=== PATIENT | female | born 1955 | race Caucasian/White ===

== ENCOUNTER 2025-02-10 06:29 | Day surgery (SDC) | payer BC, SELFPAY ==
--- OUTSIDE RECORDS SUMMARY | 2024-12-20 10:19 | XMS_ITS | Data Portability ---
Author Organization [place] [facility] Cathryn Palm [facility] [place] Address [address] [place] [address] Care Team Providers Care Sales And Service Change Leader Name Role Phone NICOLE JACKSON Primary Care Provider Assessment No assessment recorded. Plan of Treatment Reminders Order Date Submit Date Provider Last Modified By Organization Details Last Modified Time Details Appointments None record ed. Lab None record ed. Referral None record ed. Procedures None record ed. Surgeries None record ed. Imaging XR, knee, 3 view 023 12/24/19 23 [facility], [address], [place], [address], 3 10:16:20 Medication Orders None record ed. Patient TargetsNo targets recorded. Patient Instructions Encounter Date Encounter Id Patient Instructions Last Modified By Organization Details Last Modified Time 12/23/2022 [id number] AP, lateral, and patellar views of the right knee taken today demonstrate satisfactory position and alignment of components following right total knee replacement. [email or web address] Not available 12/23/2022 09:40:45 Reason for Referral None Reported. Medical Equipment None Reported. Allergies No known drug allergies Medications Name Sig Start Date Stop Date Status Note LastModified by Organization Details LastModified Time azithromycin 250 mg tablet TAKE 2 TABLETS BY MOUTH TODAY, THEN TAKE 1 TABLET DAILY FOR 4 DAYS active Not Available Not Available No t Available sulfamethoxa zole 800 mg-trimethop rim 160 mg tablet TAKE 1 TABLET BY MOUTH TWICE A DAY active Not Available Not Available No t Available amoxicillin 500 mg tablet TAKE 4 TABLETS BY MOUTH 1 HOUR PRIOR TO DENTAL APPT. active Not Available Not Available No t Available meclizine 25 mg tablet TAKE 1 TABLET BY MOUTH EVERY 6 HOURS NEEDED NAUSEA active Not Available Not Available No t Available metoprolol succinate ER 25 mg tablet,exten ded release 24 hr TAKE 1/2 TABLET BY MOUTH DAILY active Not Available Not Available Not Available doxycycline hyclate 100 mg tablet active Not Available Not Available No t Available valsartan 160 mg tablet TAKE 2 TABLET BY MOUTH DAILY (DOSE INCREASE 05/11/21) active Not Available Not Available No t Available rosuvastatin 10 mg tablet TAKE 1 TABLET BY MOUTH DAILY AT BEDTIME FOR CHOLESTEROL active Not Available Not Available Not Available Eliquis 5 mg tablet TAKE 1 TABLET BY MOUTH TWICE A DAY FOR 30 DAYS active Not Available Not Available No t Available Paxlovid 300 mg (150 mg x 2)-100 mg tablets in a dose pack TAKE 3 TABLETS BY MOUTH TWICE DAILY FOR 5 DAYS active Not Available Not Available No t Available Vitals Date Recorded Body height Body mass index (BMI) Body weight Provider Name and Address Organization Details Last Updated DateTime 12/23/2022 157.48 cm 27.4 kg/m2 [address] [place] [facility], 12/23/2022 09:07:58 Social History None recorded. Functional Status None recorded. Mental Status None recorded. Family History Nothing Reported. Medical History Condition Response Coronary Artery Disease N Gout N Hyperthyroidism N MRSA N Blood Transfusion N Emphysema N Depression N COPD N Hypothyroidism N Pacemaker N Vascular Disease N Gastrointestinal Disease N Anxiety Disorder N Autoimmune disease N Arthritis N Cancer N Stroke N High Cholesterol N Neurologic Disorder N Liver Disease N Organ Transplant N Rheumatoid Arthritis N Arrhythmia N Fibromyalgia N Kidney Disease N Allergies/Hayfever N Adverse Reaction to Anesthesia N Thyroid Problems N Anemia N Brain Injury N Heart Attack (MS) N Osteopenia N Diabetes N Bleeding Disorder N Seizures/Epilepsy N AIDS/HIV N Congestive Heart Failure (CHF) N Asthma N Amputation N Reflux/GERD N Sleep Apnea N Hepatitis N Aneurysm N Heart Disease N Pulmonary Embolism N Hypertension N Osteoporosis N Gynecological HistoryNo gynecological history recorded. Obstetrics History GPAL:G 0 P 0 0 0 0 Past Encounters Encounter ID Performer Location Encounter Start Date Encounter Closed Date Diagnosis/Indication Diagnosis SNOMED-CT Code Diagnosis ICD10 Code Diagnosis Note [id number] MD AB Craig [address] [place] [address] [address] [place] [address] 12/23/2022 08:49:46 12/23/2022 09:36:59 History of right total knee replacement [id number] 320207 Z96.651 Aftercare [id number] Z47. 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 She has minimal pain at baseline. She ambulates well. Her only issue is with stairs where she has some discomfort. Overall regarding the knee, patient reports good pain relief in the knee and satisfactory judaism of function in terms of activities of daily living. Physical Exam:Patient is well nourished, well-developed, in no acute distress, with appropriate mood and affect. The patient is oriented to time, place, and person. Respirations are even and unlabored. There is no inguinal adenopathy. Examination of the contralateral knee shows normal range of motion, strength, no tenderness, and intact skin. The affected limb is well-perfused, with well healed skin incision. The patient demonstrates good knee motion, stability, and strength. The knee moves from 0-120 degrees. The alignment of the knee is {{varus valgus neut ral*}}. Muscle strength is normal. Pedal pulses are palpable. Hip examination, including flexion and internal rotation, was negative in that groin pain was not produced. Assessment/Plan: This patient is functioning well {{1* 2 3 4 6 8 12}} {{week(s) month(s) year*}} after {{LEFT RIGHT* BILAT ERAL}} total knee arthroplasty. Continue knee conditioning exercises. I discussed that this will likely help her with her stair discomfort. Zerv-pwz-[id number] medications as needed. Ultimate failure may occur due to mechanical wear, loosening or breakage. Follow-up is recommended to assess for the possibility of failure. She can follow-up at 5 years from surgery unless there are issues before then. Stephen Blanco MD [address] [place] [address], [place], [address], [place] [facility], P 12/23/2022 09:40:58 OBGyn Episode No OBEpisode recorded.
--- OUTSIDE RECORDS SUMMARY | 2024-12-20 10:19 | XMS_ITS | Data Portability ---
Author Organization [facility], OFFICE Address [address] [place] [address] Assessment Encounter Date Assessment Date Assessment LastModified by Organization Details LastModified Time 05/19/2021 05/19/2021 Kanchan has been recovering well following revision RTHR. She's going to continue to progress as tolerated. This visit was conducted as a real-time telehealth interactive video visit during this the national emergency and ongoing COVID-19 pandemic. She was identified and consented to this telehealth visit. She was at her home and I was at my office. I spent a total of 15 minutes during this clinical encounter. Greater than 50% of the time was devoted to counseling and coordinating care. This included reviewing records and pertinent studies, discussing diagnostic evaluation and workup, planning therapeutic interventions, and formulating the future disposition of care. sbm Not available 05/19/2021 10:27:28 Plan of Treatment Reminders Order Date Submit Date Provider Last Modified By Organization Details Last Modified Time Details Appointments None record ed. Lab None record ed. Referral None record ed. Procedures None record ed. Surgeries None record ed. Imaging None record ed. Medication Orders None record ed. Patient TargetsNo targets recorded. Patient InstructionsNo instructions recorded. Reason for Referral None Reported. Problems Name Problem SNOMED Code Status Onset Date Resolution Date Notes Provider Name and Address Organization Details Recorded Time Localized, primary osteoarthriti s of the pelvic region and thigh [id number] Active Not Available [facility] 4 03:31:08 Problem Notes None recorded. Procedures Surgical History Date Name Laterality Status Provider Name and Address Organization Details Recorded Time 03/02/20 21 total replacement of right hip joint completed Mil Dover MD [address], [place], [address], [place] - [facility] 05/19/2021 10:24:29 04/06/20 10 Total hip arthroplasty completed Not Available [facility] 03/04/2014 03:31:22 01/08/20 10 Total hip arthroplasty completed Not Available [facility] 03/04/2014 03:31:22 Imaging Results None recorded. Procedure Notes None recorded. Medical Equipment None Reported. Medications Name Sig Start Date Stop Date Status Note LastModified by Organization Details LastModified Time celecoxib 200 mg capsule TAKE 1 CAPSULE BY MOUTH EVERY DAY active Not Available Not Available No t Available cyclobenzapr ine 10 mg tablet TAKE 1 TABLET BY MOUTH TWICE A DAY NEEDED active Not Available Not Available No t Available prednisone 10 mg tablet PLEASE SEE ATTACHED FOR DETAILED DIRECTIONS active Not Available Not Available N ot Available valsartan 80 mg tablet TAKE 1 AND 1/2 TABLETS BY MOUTH DAILY active Not Available Not Available No t Available simvastatin 20 mg tablet TAKE 1/2 TABLET BY MOUTH DAILY active Not Available Not Available Not Available buspirone 10 mg tablet TAKE ONE TABLET BY MOUTH TWICE DAILY NEEDED active Not Available Not Available No t Available omeprazole 20 mg capsule,jania yed release 1 CAPSULE ORAL DAILY TAKE IN A.M. 30 MINUTES PRIOR TO EATING/OTHE R MEDS. USE WHILE ON CELEBREX. active Not Available Not Available No t Available diclofenac sodium 50 mg tablet,delay ed release TAKE 1 TABLET BY MOUTH EVERY 8 HOURS active Not Available Not Available No t Available albuterol sulfate HFA 90 mcg/actuatio n aerosol inhaler INHALE 2 PUFFS EVERY 6 HOURS NEEDED active Not Available Not Available No t Available oxycodone 5 mg tablet PLEASE SEE ATTACHED FOR DETAILED DIRECTIONS active Not Available Not Available N ot Available valsartan 160 mg tablet TAKE 1 TABLET BY MOUTH EVERY DAY active Not Available Not Available No t Available Eliquis 2.5 mg tablet TAKE 1 TABLET BY MOUTH TWICE A DAY active Not Available Not Available No t Available Vitals None Recorded Social History None recorded. Functional Status None recorded. Mental Status None recorded. Family History Nothing Reported. Medical History No medical history recorded. Gynecological HistoryNo gynecological history recorded. Obstetrics History GPAL:G 0 P 0 0 0 0 Past Encounters Encounter ID Performer Location Encounter Start Date Encounter Closed Date Diagnosis/Indication Diagnosis SNOMED-CT Code Diagnosis ICD10 Code Diagnosis Note [id number] [address] [place] [address] [place] [address] 11/11/2009 11:52:42 11/11/2009 14:14:46 Localized, primary osteoarthritis of the pelvic region and thigh [id number] [facility] [address] [place] [address] 01/07/2010 00:04:07 01/07/2010 00:04:07 Localized, primary osteoarthritis of the pelvic region and thigh [id number] OFFICE [address] [place] [address] [place] [address] 02/19/2010 14:19:04 02/22/2010 08:39:22 Localized, primary osteoarthritis of the pelvic region and thigh [id number] [facility] IN [address] [place] [address] 04/06/2010 00:04:14 04/06/2010 00:04:14 Localized, primary osteoarthritis of the pelvic region and thigh [id number] OFF[address] [address] 05/26/2010 15:03:27 05/26/2010 16:24:12 Localized, primary osteoarthritis of the pelvic region and thigh [id number] OFFICE [address] [address] 08/30/2010 11:17:16 08/30/2010 12:37:38 Localized, primary osteoarthritis of the pelvic region and thigh [id number] OFFICE [address] [address] 08/29/2011 11:22:04 08/29/2011 12:39:14 Localized, primary osteoarthritis of the pelvic region and thigh [id number] Mil Dover MD [address] [address] [place] [address] 05/19/2021 07:46:47 05/19/2021 15:22:15 Health Concerns Section Related Observation LastModified by Organization Detai ls LastModified Time None Recorded Concern Status LastModified by Organization Details LastModified Time None Recorded Advance Directives Directive None Recorded Payers Encounter Date Sequence Insurance Name Policy Number Policy [place] Covered Member ID [place] Member ID Guarantor Name 04/06/2010 1 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 Carlos Diaz [id number] 05/26/2010 1 [place] Carlos Diaz [id number] 08/30/2010 1 [place] Carlos Diaz [id number] 08/29/2011 1 [place] Carlos Diaz [id number] 05/19/2021 1 [place] Carlos Diaz [id number] Notes Date Note Type Note Provider Name and Address Organization Details Recorded Time 05/19/2021 text/html Hip(s) [facility] by[facility].Location:r ight Severity:no pain Aggravating Factors:cannot identify Associated Symptoms:no weakness; no numbness; no tingling; no swelling; no redness; no warmth; no ecchymosis; no catching/locking; no popping/clicking; no buckling; no grinding; no instability; no radiation down leg; no drainage; no fever; no chills; no weight loss; no change in bowel/bladder habits Prior Imaging:x ray; MRI; CT scan Previous PT:helped significantly Mil Dover MD [address] [place] [address],[facility] [address], [place], [address], [place] [facility] 05/19/2021 10:27:31 OBGyn Episode No OBEpisode recorded.
--- OUTSIDE RECORDS SUMMARY | 2024-12-20 10:19 | XMS_ITS | Clinical Summary ---
Author Organization [facility] Address [address] [place] [address] Care Team Providers Care Neuropsychology Division Chief Name Role Phone Tanna Solano MD Primary Care Provider [phone] Allergies Active Allergy Reactions Criticality Noted Date Comments Nickel Low 08/16/2021 Nickel allergy-no official records of allergy testing. Skin turns green. Seasonal 12/24/2021 Medications Medication Sig Dispensed Refills Start Date End Date Status simvastatin (ZOCOR) tablet 20 mg Take 10 mg by mouth daily. 1 04/19/2019 Active valsartan (DIOVAN) tablet 160 mg Take 320 mg by mouth daily. 5 04/05/2019 Active hydroCHLOROthiazide (HYDRODIURIL) tablet 12.5 mg 12.5 mg daily. 0 07/27/2021 Active aspirin EC 81 MG EC tablet Take 1 tablet (81 mg total) by mouth 2 (two) times a day after meals. 84 tablet 0 09/14/2021 Active meloxicam (MOBIC) 15 MG tablet Take 1 tablet (15 mg total) by mouth daily. 14 tablet 0 09/14/2021 Active Additional Information Patient not taking.Reason: Other, Reported on 12/24/2021 methocarbamol (ROBAXIN) 750 MG tablet Take 1 tablet (750 mg total) by mouth every 6 (six) hours as needed (spasm). 40 tablet 0 09/14/2021 Active oxyCODONE (ROXICODONE) 5 MG immediate release tablet Take 1 tablet (5 mg total) by mouth every 4 (four) hours as needed for pain. 30 tablet 0 09/14/2021 Active Additional Information Patient not taking.Reason: Other, Reported on 12/24/2021 senna-docusate (PERICOLACE) 8.6-50 MG Take 1 tablet by mouth 2 (two) times a day. 60 tablet 0 09/14/2021 Active ondansetron (Zofran ODT) 8 MG disintegrating tablet Take 1 tablet (8 mg total) by mouth every 8 (eight) hours as needed for nausea. 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 Overview: Degenerative joint disease of shoulder region Immunizations Name Administration Dates Next Due Covid-19 (Moderna 12+) 100mcg/0.5mL dosage 08/09,12/09/2020,11/11/2020 Family History Medical History Relation Name Comments Hypertension Brother COPD Father Emphysema Father Hypertension Father Stroke Father Atrial fibrillation Mother COPD Mother Dementia Mother Heart failure Mother No Sig Med Hx Sister Relation Name Status Comments Brother Alive Father (Age 80) Mother (Age 95) Sister Alive Social History Tobacco Use Types Packs/Day Years Used Date Smoking Tobacco: Former Cigarettes 0.3 10 Q uit: 06/16/1981 Smokeless Tobacco: Never Alcohol Use Standard Drinks/Week Comments Yes 3 (1 standard drink = 0.6 oz pur e alcohol) Sex and Gender Information Value Date Recorded Sex Assigned at Female 06/16/2021 11:09 AM EDT Gender Identity Female 06/16/2021 11:09 AM EDT Sexual Orientation Not on file Job Start Date Occupation Industry Not on file Not on file Not on file Last Filed Vital Signs Vital Sign Reading Time Taken Comments Blood Pressure 108/68 09/14/2021 1:30 PM EST Pulse 70 09/14/2021 10:26 AM EST Temperature 36.7 ??C (98 ??F) 09/14/2021 10:26 AM EST Respiratory Rate 19 09/14/2021 10:26 AM EST Oxygen Saturation 97% 09/14/2021 10:26 AM EST Inhaled Oxygen Concentration - - Weight 68 kg (150 lb) 09/13/2021 6:38 AM EST Height 158.8 cm (5' 2.5 ) 09/13/2021 6:38 AM EST Body Mass Index 27 09/13/2021 6:38 AM EST Plan of Treatment Health Maintenance Due Date Last Done Comments Hepatitis C Screening 1953 Depression Screening 1965 Preventative Health Evaluation 1971 Colon Cancer Screening (Colonoscopy) 1998 Breast Cancer Screening (Mammogram) 2003 Shingrix-Zoster Vaccine (1 of 2) 2003 DTap / Tdap / Td (1 - Tdap) 07/10/2007 07/09/2007 Fall Risk Assessment 2018 Osteoporosis Screening (DEXA Scan) 2018 Pneumococcal Vaccine (2 of 2 - PPSV23 or PCV20) 04/08/2021 04/08/2020 COVID-19 Vaccine ( season) 2024 08/09/2021, 12/09/2020, 11/11/2020 Influenza Vaccine (#1) 2024 , 08/13/2018, 08/15/2017, Additional history exists RSV Adult > 60+ Yrs or (1 - 1-dose 75+ series) 2028 Hepatitis B Vaccines Aged Out No long er eligible based on patient's age to complete this topic RSV Ped < 20 months Aged Out No longe r eligible based on patient's age to complete this topic Medical Devices Implanted Type Area Building Construction Inspector Device Identifier Shelf Expiration Date Model / Serial / Lot Journey Nonporous Tibial Baseplate Implanted:Qty : 1 on 09/13/2021 by Stephen Blanco MD at [facility] Total Joint Right: Knee 07/13/2031 / / [id number] Journey Ii Size 3-4 Right 11mm Deep Dished Articular Insert Implanted:Qty : 1 on 09/13/2021 by Stephen Blanco MD at [facility] and [facility] Right: Knee [employer] 07/15/2029 [id number] / / [id number] Cement Bone Surg Simplex Radiopq [facility] [id number] [id number] - [id number] Implanted:Qty : 1 on 09/13/2021 by Stephen Blanco MD at [facility] and [facility] Right: Knee [employer] [id number] 08/08/2022 [id number] / / [id number] Cement Bone Surg Simplex Radiopq [employer] [id number] 4092 - [id number] Implanted:Qty : 1 on 09/13/2021 by Stephen Blanco MD at [facility] and [facility] Right: Knee [employer] [id number] 08/08/2022 6191- / / [id number] Knee Cmpnt Fem Oxnm Bcs Rt Sz4 [facility] [id number] 19 - [id number] Implanted:Qty : 1 on 09/13/2021 by Stephen Blanco MD at [facility] and [facility] Right: Knee [employer] [id number] 02/15/2031 [id number] / / [id number] Knee Patella Ovl 29x8.5mm [facility] [id number] 60 - [id number] Implanted:Qty : 1 on 09/13/2021 by Stephen Blanco MD at [facility] and [facility] Right: Knee [employer] [id number] 07/13/2031 [id number] / / [id number] Advance Directives For more information, please contact: [phone] Latest Code Status on File Code Status Date Activated Date Inactivated Comments Full Code 09/13/2021 7:26 AM 09/14/2021 8:15 PM This code status was ascertained in the following way: discussion with patient . Code Status History Code Status Date Activated Date Inactivated Comments Full Code 09/13/2021 6:30 AM 09/13/2021 7:26 AM This code status was ascertained in the following way: discussion with patient . Care Teams Neuropsychology Division Chief Relationship Specialty Start Date End Date Tanna Solano MD [address] [place] [phone] PCP - General Family Medicine 05/11/21
--- OUTSIDE RECORDS SUMMARY | 2024-12-20 10:19 | XMS_ITS | Data Portability ---
Author Organization [place] - [facility], [facility] [place] Office Address [address] [place] [address] Care Team Providers Care Real Estate Broker Name Role Phone SREEDHAR BURTON Primary Care Provider Assessment Encounter Date Assessment Date Assessment LastModified by Organization Details LastModified Time 06/15/2024 06/15/2024 Diagnostic Imagi ng: Grashey, axillary, and humerus views of bilateral shoulders were reviewed, demonstrate severe bilateral glenohumeral DJD, complete loss of glenohumeral joint space, humeral osteophyte. Assessment/ Plan: 68-year-old female presents severe bilateral glenohumeral DJD, left worse than right. We had a long discussion regarding pertinent anatomy, imaging results, natural progression of the condition, and both non-surgical and surgical options. At this point, she has severe arthritis in both shoulders, decreased range of motion function, it is very affecting her day-to-day activities, her ADLs, and her overall quality of life. She has tried and failed nonoperative management including pharmacotherapy, injection therapy, and physical therapy. I think surgery is reasonable at this point. She would be a candidate for reverse shoulder replacement. She is states that because she is right-hand dominant, she would like to proceed with her left shoulder first, which is reasonable. We discussed the risk, benefits, perioperative outcomes and expectations for left reverse shoulder replacement. Will set up with a tentative surgical date for a left RSA at [facility], as well as a presurgical consultation Dr. Danielle. All questions were answered, and she is viewed the video, was given a copy of booklet, and she is comfortable this plan. A total of 45 minutes was spent on the day of the visit, which included the patient viewing an educational video discussing risks and benefits of shoulder replacement, time spent preparing to see the patient, obtaining a pertinent H&P, review and discussion of imaging with the patient, discussion of patient anatomy, discussion of both non-surgical and surgical treatment options, answering patient questions, and documentation of the visit in EHR. This note was dictated with speech recognition software. Please excuse any errors in spelling/transcripti on, which may have changed the context of the sentence. [email or web address] Not available 06/15/2024 11:02:03 09/25/2024 09/25/2024 X-Ray AP/Grashey left shoulder-09/25/24: Very severe glenohumeral osteoarthritis with complete loss of glenohumeral joint spacing. Inferior osteophyte formation. ASSESSMENT: - Advanced arthritis of the shoulders, worse on the left. - History of multiple joint replacements. PLAN: Discussed the patient's advanced arthritis in both shoulders, with the left being worse. Explained that shoulder replacements are generally reserved for patients who experience significant pain affecting their quality of life. Kanchan's primary concern is improving her range of motion and quality of life, particularly for activities like swimming and bicycling. We discussed the potential benefits and risks of shoulder replacement surgery, including the possibility of improved motion and pain relief, but also the inherent risks of surgery such as infection, implant failure, and stress fractures. Given Kanchan's history of managing pain and her current level of discomfort, we will proceed with scheduling her for a reverse shoulder replacement surgery in December. She will be provided with a booklet containing detailed information about the surgery and postoperative care. Follow-up will be arranged to monitor her progress and address any concerns. Had a lengthy conversation today with the patient regarding their shoulder. Patient has watched the pre-visit video. Explained to patient in detail the anatomy of a shoulder. Reviewed X-Rays. Reviewed all possible treatment options which include: nothing until pain is unbearable, injections or surgery. Discussed the possible surgical options would be a total shoulder replacement or a reverse shoulder replacement. I am more inclined to perform a reverse for the patient given the anatomic replacement's risk for rotator cuff tearing in the future, as well as the reverse's improved longevity comparatively. Discussed optimal treatment outcomes, with realistic healing, pain and range of motion levels post-surgically. Reviewed the seven general surgical risks; infection, medical risk factors, dislocation/popping out of socket, implant failure, nerve injury, stress fracture, and the possibility of still having pain. I am especially concerned by the patient's risk for acromial stress fracture. Should this occur, immobilization in a sling will be necessary for 4-6 weeks, which can be quite discouraging. Surgical repair of the fracture may be necessary, but this is a very rare occurrence. Ultimately, there is a chance that, functionally, the patient will be unchanged or worse off compared to their current condition should this fracture occur. Barring any complications, however, surgery should improve the patient's general pain and function reliably. Despite the risks and benefits, they would like to proceed with surgery, as the pain and dysfunction affect their quality of life on a daily basis. They are scheduled for a LEFT Reverse for 12/10/24. Reviewed operative and post op healing process. Discussed that patient is allowed to do small movements in front of body and driving usually is allowed within 2-6 weeks, once they are off pain medication and has practiced with family/friends. Patient received a pre-op binder. Given the patient's pain, dysfunction, and advanced degenerative changes, advised against enrollment in a formal physical therapy program, as this will likely exacerbate their shoulder pain. I spent a total of 45 minutes on the day of the visit which included In depth discussion and shared decision making with patient regarding options for non-surgical and surgical treatment. This discussion included but was not limited to preoperative optimization, surgical procedure and approach, appropriate implant selection and technologies, benefits and risks of surgery as well as postoperative care and recovery. This plan is subject to change based on clinical presentation and intraoperative decision making. This appointment note was dictated in real-time using AI-assisted software. Given the limitations of this software, please disregard any redundancies, grammatical errors, or oversimplification of medical terminology throughout this transcript. [email or web address] Not available 10/23/2024 09:18:22 Plan of Treatment Reminders Order Date Submit Date Provider Last Modified By Organization Details Last Modified Time Details Appointments 240 Surgery 2024 12:00A M KARUNA DANIELLE MD Not available Not available Not available Lab None recorded. Referral None recorded. Procedures None recorded. Surgeries orthopaed ic surgery (SURG) 2023 025 [email or web address] [facility] (Surgery Scheduling), [address], [place], [address], 11/21/2024 13:11:34 Imaging None recorded. Medication Orders None recorded. Patient TargetsNo targets recorded. Patient InstructionsNo instructions recorded. Reason for Referral None Reported. Problems Name Problem SNOMED Code Status Onset Date Resolution Date Notes Provider Name and Address Organization Details Recorded Time Localized, primary osteoarthritis of the shoulder region 039291721 Active 2023 KAITLYNN TONY [address] [place] [address], [phone], [facility] 4 10:16:47 Problem Notes None recorded. Procedures Surgical History Date Name Laterality Status Provider Name and Address Organization Details Recorded Time 1 Orthopaedic Surgery completed Benjie Christinemirta [facility] 06/15/2024 09:58:13 1 [facility] 06/15/2024 09:56:59 0 Orthopaedic Surgery completed [facility] 06/15/2024 09:57:38 9 Orthopaedic Surgery completed [facility] 06/15/2024 09:57:19 1 Orthopaedic Surgery completed [facility] 06/15/2024 09:58:38 8 [facility] 06/15/2024 09:59:40 Orthopaedic Surgery completed [facility] 06/15/2024 09:59:05 [facility] 06/15/2024 09:59:16 Imaging Results None recorded. Procedure Notes None recorded. Medical Equipment None Reported. Allergies No known drug allergies Medications Name Sig Start Date Stop Date Status Note LastModified by Organization Details LastModified Time furosemide 20 mg tablet Take 1 tablet every day by oral route. active Not Available Not Available No t Available Eliquis 5 mg tablet Take 1 tablet twice a day by oral route. active Not Available Not Available No t Available Vitals Date Recorded Body height Body mass index (BMI) Body weight Provider Name and Address Organization Details Last Updated DateTime 06/15/2024 157.48 cm 27.4 kg/m2 90514.86 g Benjie Sharma [facility] 06/15/2024 09:55:02 Social History Question Answer Notes LastModified by Organizat ion Details LastModified Time Tobacco Smoking Status Never Smoker Benjie Sharma you [facility] 06/15/2024 09:55:34 What Is Your Level Of Alcohol Consumption? Occasional Information not available 06/15/2024 Do You Or Have You Ever Used E-cigarettes Or Vape? 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 Never Used Smokeless Tobacco Information not available 06/15/2024 Sex: Unknown Functional Status None recorded. Mental Status None recorded. 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 Obstetrics History GPAL:G 0 P 0 0 0 0 Past Encounters Encounter ID Performer Location Encounter Start Date Encounter Closed Date Diagnosis/Indication Diagnosis SNOMED-CT Code Diagnosis ICD10 Code Diagnosis Note [id number] KAITLYNN TONY [address] [address] 06/15/2024 09:21:49 06/15/2024 11:58:13 Localized, primary osteoarthritis of the shoulder region 968054643 M19.447 [id number] KARUNA DANIELLE MD [address] [address] 09/25/2024 13:54:49 09/25/2024 15:03:13 Localized, primary osteoarthritis of the shoulder region [id number] M19.019 Health Concerns Section Related Observation LastModified by Organization Detai ls LastModified Time None Recorded Concern Status LastModified by Organization Details LastModified Time None Recorded Advance Directives Directive None Recorded Payers Encounter Date Sequence Insurance Name Policy Number Policy [place] Covered Member ID [place] Member ID Guarantor Name 06/15/2024 1 [facility]: [employer] 104 Kanchan Conway [id number] Kanchan Conway 09/25/2024 1 [facility]: [employer] 104 Kanchan Conway [id number] Kanchan Conway Notes Date Note Type Note Provider Name and Address Organization Details Recorded Time 06/15/2024 text/html 68-year-old lluvia mcnamara presents with chief complaint bilateral shoulder pain, left worse than the right. She rates her pain currently as 1/10, SSV is 25% of normal. 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 Prior treatments for shoulder include oral Tylenol, physical therapy, and injection many years ago. She is unable to take anti-inflammatories due to the Eliquis she takes for A-fib. She does note that she had an ablation done in August. She notes that she limits a lot of her activity so she is not a lot of pain, but certainly if she was to do more with her arm, it would cause her pain. She states that her left shoulder has worse function, and because she uses her RUE for many things, she'd like to do her left shoulder first. 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 KAITLYNN TONY [address] [place] [address], [phone], [facility] 06/15/2024 12:09:14 09/25/2024 text/html Kanchan Conway is a 68-year-old female presenting to the clinic due to left shoulder pain. She reports that both shoulders have been problematic for approximately 10 years, with the left shoulder being worse. She experiences aching pain in both shoulders, which sometimes requires her to take Tylenol. She has had to modify or stop certain activities due to the pain. Kanchan mentions that she used to enjoy swimming but can no longer perform strokes like the crawl and now only does minimal movements in the water, which is unsatisfying. She also experiences pain and difficulty while bicycling, as she needs to keep her hands on the handlebars, causing discomfort throughout the activity. Kanchan describes the pain as not severe but persistent, with occasional sharp pain when reaching for objects. She has a history of multiple joint replacements, including three hip replacements, a knee replacement, and metal in her ankle. She has previously received cortisone injections in her shoulders, which provided temporary relief but did not improve her range of motion. PAIN - {{ 1#}}: ASES - {{ 61#}}: SANE - {{ 25#}}. KARUNA DANIELLE MD [address] [place] [address], [phone] 10/23/2024 09:18:32 OBGyn Episode No OBEpisode recorded.
--- OUTSIDE RECORDS SUMMARY | 2024-12-20 10:19 | XMS_ITS | Clinical Summary ---
Author Organization [facility] Address [address] [place] [address] Phone Care Team Providers Care Commercial Internship Name Role Phone Suzanne Xiong MD Primary Care Provider Allergies No known active allergies Medications apixaban (ELIQUIS) 5 mg tablet Take 5 mg by mouth 2 times daily. Active CRANBERRY ORAL Take 1 tablet by mouth 2 (two) times a day. Active multivit-min/fol ic acid/lutein (CENTRUM SILVER ORAL) Take 1 tablet by mouth. 2-3 times a week Active rosuvastatin (CRESTOR) 10 mg tablet Take 1 tablet (10 mg total) by mouth 1 (one) time each day. 09/27/2024 Active furosemide (LASIX) 20 mg tabletIndication s:Atrial fibrillation, unspecified type (CMS/HCC) Take 2 tablets (40 mg total) by mouth 1 (one) time each day. 09/27/2024 Active Active Problems Problem Noted Date Diagnosed Date Hyperlipidemia 09/27/2024 Assessment & Plan (09/27/2024 5:52 PM EST): Patient is concerned that the statin that she is on may be causing dementia. This does not necessarily been proven in the literature. And she is on a hydrophilic statin which is less likely to cross the blood-brain barrier and therefore it is less likely to cause any symptoms I have convinced her to go back to a full dose of this to control her lipids Heart failure with preserved ejection fraction 0 01/08/2024 SOB (shortness of breath) 11/13/2023 Assessment & Plan (09/27/2024 5:52 PM EST): Possible heart failure uncertain. BNP is elevated. Though better than it has been in the past. Other than peripheral edema no other significant identified symptoms are present. I have asked the patient to go back to her 40 mg of Lasix a day she is given a lab slip to check a basic metabolic profile. We see if we can improve the symptoms. Patient also a stress echocardiogram to assess LV systolic function and to sure there is no ischemia as the etiology for her shortness of breath The above note was prepared with the help of voice recognition software. Please excuse any grammatical or spelling errors that may have occurred Palpitations 02/27/2023 Mitral regurgitation 07/12/2022 Overview (09/12/2024): Last Assessment & Plan: Patient's last echocardiogram showed mild mitral regurgitation. She denies any clinical symptoms of heart failure and she appears euvolemic on physical examination. She continues on furosemide 20 mg twice daily. We will continue to monitor this. Atrial fibrillation 07/11/2022 Overview (09/12/2024): Last Assessment & Plan: Patient has atrial fibrillation which has been difficult to rate control. She is currently on flecainide.Her [id number] score is 2 representing a 3.2% risk for thromboembolism. She continues on Eliquis 5 mg twice daily. Patient is planned to have an ablation procedure in the coming weeks. I followed up with our procedure maintenance scheduler as well as Dr. Morrison to ensure that this gets taken care of right away. Patient is quite concerned about having this done as her recently from a fatal arrhythmia. We discussed that atrial fibrillation is not a fatal arrhythmia and that her situation is different from her 's. Nonetheless she was quite tearful and upset that this has not been booked yet. We will follow-up and make sure that this gets done right away. Assessment & Plan (09/27/2024 5:52 PM EST): Patient is status post ablation no symptomatic breakthrough. She wants to come off anticoagulation she will need a 30-day monitor which have ordered and then a conversation with shared decision making as to whether she stops this. Orders: Cardiac event monitor; Future Basic metabolic panel; Future Stress echocardiogram (TTE) exercise with PRN contrast, bubble, strain, and 3D order panel; Future furosemide (LASIX) 20 mg tablet; Take 2 tablets (40 mg total) by mouth 1 (one) time each day. Syncope 07/11/2022 Encounters Date Type Department Care Team Description 11/28/2024 8:00 AM EST Ancillary Procedure [facility] [address] [place] [address] Atrial fibrillation, unspecified type (CMS/HCC) 10/16/2024 12:30 PM EST Ancillary Procedure [facility] [address] [place] [address] Atrial fibrillation, unspecified type (CMS/HCC); Shortness of breath 09/30/2024 Telephone [facility] [address] [facility] [address] [place] [address] Rajendra Acharya MD Loop - 19162; LOOP - 25617 (Ok to Book); Loop Enrollment (Enrolling patient for 30 day Loop) 09/27/2024 1:00 PM EST Office Visit [facility] [address] [facility] [address] [place] [address] Rajendra Acharya MD Atrial fibrillation, unspecified type (CMS/HCC) (Primary Dx); Shortness of breath; SOB (shortness of breath); Moderate mixed hyperlipidemia not requiring statin therapy from Last 3 Months Surgical History Surgery Date Site/Laterality Comments HIP ARTHROPLASTY Bilateral PROCEDURE: HISTORICAL HIP REPLACEMENT HERNIA REPAIR Right PROCEDURE: HISTORICAL HERNIA REPAIR/ING OTHER SURGICAL HISTORY PROCEDURE: HISTORY OTHER; COMMENT: REVISION OF HIP REPLACEMENT RIGHT SIDE Medical History Medical History Date Comments Lee's cyst DX:Lee's cyst Cervical radiculopathy DX:Cervic al radiculopathy Deficiency of vitamin B12 DX:Def iciency of vitamin B12 Esophageal reflux DX:Esophageal reflux Hearing aid worn DX:Hearing aid worn; COMMENT: right ear Hernia, hiatal DX:Hernia, hiata l History of COVID-19 DX:History o f COVID-19 Hx of right inguinal hernia repair DX:Hx of right inguinal hernia repair Lactose intolerance DX:Lactose i ntolerance Osteoarthritis DX:Osteoarthriti s Otosclerosis DX:Otosclerosis Yjavlumdl-Pwgxkr-Fsigyw syndrome DX:Gjnioymxi-Gixhkn-Mzmgzv syndrome Carpal tunnel syndrome DX:Carpal tunnel syndrome Otitis externa of right ear DX:O titis externa of right ear Left shoulder pain DX:Left shoul hanh pain Vitamin B12 deficiency DX:Vitami n B12 deficiency 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 DX:Degenerative joint diseas e of shoulder region HTN (hypertension) DX:HTN (hyper tension) Left wrist pain DX:Left wrist pa in Syncope DX:Syncope Family History Medical History Relation Name Comments Asthma Father COPD Father Hypertension Father Alzheimer's disease Mother Heart failure Mother Relation Name Status Comments Father Mother Social History Tobacco Use Types Packs/Day Years Used Date Smoking Tobacco: Former Cigarettes Tobacco Cessation:Counseling Given: Not Answered Comments:Smoked in teens, 20's Alcohol Use Standard Drinks/Week Comments Yes 0 (1 standard drink = 0.6 oz pure alcohol) couple oz of wine once/twice weekly Comments Unknown Sex and Gender Information Value Date Recorded Sex Assigned at Not on file Legal Sex Female 9:45 AM EST Gender Identity Not on file Sexual Orientation Not on file Obstetrics History Last Filed Vital Signs Vital Sign Reading Time Taken Comments Blood Pressure 136/66 05/09/2024 10:53 AM EDT Si tting L Arm Pulse 72 09/27/2024 1:10 PM EST Temperature - - Respiratory Rate - - Oxygen Saturation 94% 09/27/2024 1:10 PM EST Inhaled Oxygen Concentration - - Weight 69.9 kg (154 lb) 10/16/2024 1:24 PM EST Height 157.5 cm (5' 2 ) 10/16/2024 1:24 PM EST Body Mass Index 28.17 10/16/2024 1:24 PM EST Plan of Treatment Upcoming Encounters Date Type Department Care Team (Late st Contact Info) Description 01/07/2025 2:40 PM EDT Office Visit [facility] [address] [place] [address] Zahira Elizabeth NP [address] [place] [address] [address] [place] [address] Health Maintenance Due Date Last Done Comments Zoster Vaccines (1 of 2) 2003 Hepatitis B Vaccines (2 of 3 - 19+ 3-dose series) 08/23/2010 07/26/2010 IPV Vaccines (2 of 3 - Adult catch-up series) 01/03/2012 12/06/2011 RSV Immunization Patients 60+ Years Old (1 - Risk 60-74 years 1-dose series) 2013 Breast Cancer Screening 12/13/2019 12/12/2017 Pneumococcal Vaccine: 50+ Years (2 of 2 - PPSV23) 04/08/2021 04/08/2020 Cholesterol Screening (Lipid Panel) 09/17/2022 Colorectal Cancer Screening: Colonoscopy 09/17/2022 Depression Screening 09/17/2022 Falls Risk Assessment 09/17/2022 Hepatitis C Screening 09/17/2022 Osteoporosis Screening (Bone Density Screening) 09/17/2022 Social Influencers of Health Screening 09/17/2022 COVID-19 Vaccine ( season) 2024 05/10/2024, 07/01/2023, 07/25/2022, Additional history exists Hypertension/CHF/CAD Annual BMP Blood Test 09/11/2024 09/11/2023 DTaP,Tdap,and Td Vaccines (3 - Td or Tdap) 09/11/2027 09/11/2017, 07/09/2007 Hepatitis A Vaccines Aged Out 12/06/2011 No long er eligible based on patient's age to complete this topic Influenza Vaccine Completed 08/26/2024, , 06/22/2020, Additional history exists HIB Vaccines Aged Out No longer eligi ble based on patient's age to complete this topic HPV Vaccines Aged Out No longer eligi ble based on patient's age to complete this topic MMR Vaccines Aged Out No longer eligi ble based on patient's age to complete this topic Meningococcal ACWY Vaccine Aged Out N o longer eligible based on patient's age to complete this topic Meningococcal B Vacine Aged Out No lo nger eligible based on patient's age to complete this topic RSV Immunization Patients Under 20 months Aged Out No longer eligible based on patient's age to complete this topic Varicella Vaccines Aged Out No longer eligible based on patient's age to complete this topic Medical Devices Implanted Type Area Rim Roller Setter Device Identifier Shelf Expiration Date Model / Serial / Lot Journey Nonporous Tibial Baseplate Implanted:Qty : 1 on 09/13/2021 by Stephen Blanco MD Joints Right: Knee 07/13/2031 / / [id number] Journey Ii Size 3-4 Right 11mm Deep Dished Articular Insert Implanted:Qty : 1 on 09/13/2021 by Stephen Blanco MD Right: Knee [employer] 07/15/2029 [id number] / / [id number] [employer] Simplex Radiopq Stry-Howm [id number] Implanted:Qty : 1 on 09/13/2021 by Stephen Blanco MD Right: Knee [employer] [id number] 08/08/2022 6191- / / [id number] C[employer] Simplex Radiopq Stry-Howm [id number] [id number] Implanted:Qty : 1 on 09/13/2021 by Stephen Blanco MD Right: Knee [employer] [id number] 08/08/2022 6191- / / [id number] Knee Cmpnt Fem Oxnm Bcs Rt Sz4 [facility] [id number] Implanted:Qty : 1 on 09/13/2021 by Stephen Blanco MD Right: Knee [employer] [id number] 02/15/2031 [id number] / / [id number] Knee Patella Ovl 29x8.5mm Smn-Orth [id number] Implanted:Qty : 1 on 09/13/2021 by Stephen Blanco MD Right: Knee [employer] [id number] 07/13/2031 [id number] / / [id number] Procedures Procedure Name Priority Date/Time Associated Diagnosis Comments STRESS ECHOCARDIOGRAM EXERCISE Routine 10/16/2024 1:24 PM EST Atrial fibrillation, unspecified type (CMS/HCC) Shortness of breath ANNUAL [facility] BLOOD TEST Routine 09/11/2023 from Last 3 Months or Most Recently Relevant to Health Maintenance Results * STRESS ECHOCARDIOGRAM EXERCISE (10/16/2024 1:24 PM EST) BSA 1.75 m2 CV PACS STRESS Exercise/inject ion duration (min) 6 CV PACS STRESS Exercise/inject ion duration (sec) 5 CV PACS STRESS Peak SBP 178 mmHg CV PACS STRESS Peak DBP 72 mmHg CV PACS STRESS Peak HR 136 bpm CV PACS STRESS Baseline HR 70 bpm CV PACS STRESS Baseline SBP 130 mmHg CV PACS STRESS Baseline DBP 72 mmHg CV PACS STRESS Estimated workload 7.2 METS CV PACS STRESS Percent HR 91 % CV PACS STRESS Rate Pressure Product 24,208.0 mmHg*bpm CV PACS STRESS Target HR 128 bpm CV PACS STRESS Angina Index 0 CV PACS STRESS Max HR Percent 91 % CV PA CS STRESS ST Depression (mm) 0 mm CV PACS STRESS Anatomical Region Laterality Modality Ultrasound 10/16/2024 12:5 3 PM EST 10/16/2024 1:30 PM EST Narrative 10/23/2024 10:31 AM EST ?Stress ECG was normal. ?Exercise stress test was performed. Exercise capacity was above average. Normal blood pressure response. ?Post??Stress??Impression: The study is normal. ?Low risk of ischemia. ?Normal wall motion, unchanged from baseline. ?Stress: Blood pressure demonstrated a normal response. Heart rate demonstrated a normal response. The patient reported mild shortness of breath during the stress test. ?Exercise stress test showed no evidence of exercise-induced ischemia by echocardiographic or EKG criteria normal heart rate and blood pressure response patient did have exertional dyspnea. ??But no EKG or echocardiographic evidence for ischemia at moderate workload Left Ventricle Left ventricle cavity size is normal. There is mild hypertrophy. Systolic function is normal with an ejection fraction in the 55-70% range. There are no regional LV wall motion abnormalities. Study Details Overall the study quality was adequate. Stress Findings A Rudy protocol stress test was performed. Overall, the patient's exercise capacity was above average. Total stress time was 6 min and 5 sec. The patient experienced no angina during the test. The test was stopped because the patient experienced fatigue and shortness of breath. The patient's hemodynamic response was adequate for diagnosis. Blood pressure demonstrated a normal response. Heart rate demonstrated a normal response. The patient reported mild shortness of breath during the stress test. ECG 68 yo female h/o Afib and exertional shortness of breath. The ECG shows normal sinus rhythm. The ECG axis is normal. There were no arrhythmias during stress. There is no ST segment changes during stress. Arrhythmias during recovery: rare premature ventricular contractions (PVCs). There were no ST changes. The result of the stress ECG was negative for ischemia. Echo Post Stress Left ventricular cavity size decreased from baseline. Left ventricular systolic function improved from baseline. Systolic function is normal with an ejection fraction of 55-70%. Normal wall motion, unchanged from baseline. Nuclear Measurements The study is normal. This study shows a low risk of major adverse cardiovascular events. Rajendra Acharya MD CV ECHO PROCEDURES Final Resul t * Annual [facility] Blood Test (09/11/2023) [facility] Annual [facility] Blood Test abstracted Historical Provider HEALTH MAINTENANCE Final Result from Last 3 Months or Most Recently Relevant to Health Maintenance Insurance [facility] Care Teams Commercial Internship Relationship Specialty Start Date End Date Suzanne Xiong MD [address] [address] PCP - General 06/06/23
--- OUTSIDE RECORDS SUMMARY | 2024-12-20 10:19 | XMS_ITS | Encounter Summary ---
Author Organization [facility] Address [address] [place] [address] Care Team Providers Care Cupola Tapper Name Role Phone Suzanne Xiong MD Primary Care Provider Reason for Visit * Reason Onset Date Comments Loop - 02522 09/30/2024 LOOP - 94312 (Ok to Book) 09/30/2024 Loop Enrollment 09/30/2024 Enrolling vic t for 30 day Loop Encounter Details Date Type Department Care Team (Late st Contact Info) Description 09/30/2024 Telephone [facility] [address] [place] [address] Rajendra Acharya MD [address] [place] [address] [address] [place], [place] [id number] Loop - 67889; LOOP - 69772 (Ok to Book); Loop Enrollment (Enrolling patient for 30 day Loop) Social History Tobacco Use Types Packs/Day Years Used Date Smoking Tobacco: Former Cigarettes Comments:Smoked in teens, 20 's Alcohol Use Standard Drinks/Week Comments Yes 0 (1 standard drink = 0.6 oz pure alcohol) couple oz of wine once/twice weekly Comments Unknown Sex and Gender Information Value Date Recorded Sex Assigned at Not on file Legal Sex Female 9:45 AM EST Gender Identity Not on file Sexual Orientation Not on file documented as of this encounter Progress Notes * Heidi Cummings MA - 11/26/2024 9:31 AM EST 11/26/24- Enrolling patient for 30 day Loop ordered by Dx: *assess for Afib- on AC* I called and left a detailed message letting patient know [employer] will be reaching out to set up home delivery. * Zoë Orozco MA - 10/29/2024 7:42 AM EST FCM to cancel enrollment. Will re-enroll patient for the monitor on 11/25/24. Thank you. * Rajendra Acharya MD - 10/24/2024 4:07 PM EST Go ahead and wait until she gets back from her travels obviously she is not too worried about the A-fib. But I am sure that if we do not do that she is going to come back and wanted accomplished at some point so lets just postpone until she gets back. In that way it does not get lost in some foreign country. But if it does get lost in a foreign country I be more than happy to retrieve it ([facility] woul d pay the cost for me to go the) * Zoë Orozco MA - 10/24/2024 1:12 PM EST Patient called [employer] to arrange home delivery of monitor and stated to them that she was traveling out of the country in early November and would prefer to do the test after she returns.She has asked for the monitor to be sent out on 11/25/24 and will start the test that week. Please advise? Thank you. * Heidi Cummings MA - 10/24/2024 10:08 AM EST 10/24/24- Enrolling patient for 30 day Loop ordered by Dx: assess for Afib- on AC I called and spoke to patient, she is aware [employer] will reach out to her to schedule home delivery. * Heidi Cummings MA - 10/24/2024 9:31 AM EST Patient is to be enrolled for 30 day Loop ordered by Dx: Assess for Afib- on AC * Lary Long - 10/24/2024 9:01 AM EST Prior Auth Status: APPROVED Auth Number: [id number] Prior Auth Validity Dates: 09.30.24 - 12.29.24 CPT: 43681 - LOOP DX: I48.91 Duration: 30 Days [place]: Marck PAGAN to BOOK * Lary Long - 10/11/2024 10:47 AM EST Nothing pending with [employer]. Re-faxed to insurance * Lary Long - 10/03/2024 8:55 AM EST [employer] medical necessity review as nothing was pending on [employer] * Lary Long - 09/30/2024 2:08 PM EST Review for medical necessity for cpt code: 16498 submitted to [facility] Federal. documented in this encounter Plan of Treatment Upcoming Encounters Date Type Department Care Team (Late st Contact Info) Description 01/07/2025 2:40 PM EDT Office Visit [facility] [address] [place] [address] Zahira Elizabeth, MEGAN [address] [place] [address] [address] [place] [address] documented as of this encounter Visit Diagnoses Not on filedocumented in this encounter Care Teams Cupola Tapper Relationship Specialty Start Date End Date Suzanne Xiong MD [address] [facility] [address] [place] [address] PCP - General 06/06/23 documented as of this encounter
--- OUTSIDE RECORDS SUMMARY | 2024-12-20 10:20 | XMS_ITS | Continuity of Care Document ---
Author Organization [facility] Address [address] [facility] [place] [address]- Care Team Providers Care Repairer Cylinder Heads Name Role Phone Inga ABEBE, Suzanne Melendez Primary Care Physician Encounter 12/01/24 - 12/08/24 [facility] [address], [address] [place] [address]- Attending Physician: Xiomara ABEBE, Tanna Harrison Admitting Physician: Tanna Solano MD Referring Physician: Tanna Solano MD Encounter Type: OutPatient One Time Allergies, Adverse Reactions, Alerts No Known Medication Allergies Substance Criticality Severity Reaction Reaction Severity Status Nickel 1 Unable to assess criticality Persistent Mild Unknown Active Other Environmental Allergy Active 1Outside Source Comment: Nickel allergy-no official records of allergy testing. Skin turns green. Immunizations Given and Recorded Vaccine Date Status Refusal Reason influenza virus vaccine, inactivated 9/23/23 Damion rded influenza virus vaccine, inactivated 06/22/20 Damion rded influenza virus vaccine, inactivated 1 08/13/18 Gi gracie influenza virus vaccine, inactivated 2 08/15/17 Gi gracie influenza virus vaccine, inactivated 09/07/16 Give n influenza virus vaccine, inactivated 08/06/15 Give n influenza virus vaccine, inactivated 06/30/14 Give n influenza virus vaccine, inactivated 06/04/12 Give n influenza virus vaccine, inactivated 3 07/11/11 Gi gracie influenza virus vaccine, inactivated 4 07/26/10 Gi gracie influenza virus vaccine, inactivated 07/09/09 Give n [id number] bivalent booster vax 07/25/22 Recorded SARS-CoV-2 (COVID-19) mRNA-1273 vaccine 01/13/22 R ecorded SARS-CoV-2 (COVID-19) mRNA-1273 vaccine 08/09/21 R ecorded SARS-CoV-2 (COVID-19) mRNA-1273 vaccine 12/09/20 R ecorded SARS-CoV-2 (COVID-19) mRNA-1273 vaccine 11/11/20 R ecorded pneumococcal 13-valent vaccine 5 04/08/20 Given tetanus/diphtheria/pertussis, acel(Tdap) 6 09/11/17 Given Poliovirus Vaccine, Inactivated 12/06/11 Given Typhoid Vaccine, Inactivated 12/06/11 Given Hepatitis A Adult Vaccine 7 12/06/11 Given hepatitis B adult vaccine 8 07/26/10 Given tetanus-diphtheria toxoids (Td) 9 07/09/07 Given 1Result Comment: [08/13/2018] [facility]: 23047-377-18 2Result Comment: [08/15/2017] 2016 2017 3Admin Note: VIM 05/03/11 4Admin Note: 05/18/10 VIM GIVEN TODAY fluzone 5Result Comment: [facility]# [id number] 6Result Comment: [09/11/2017] waiver signed 7Admin Note: hep A #1 8Admin Note: 03/2009 vim given today 9Admin Note: [place] BIOLOGIC JOLENE GIVEN TODAY DATE ON JOLENE 03/18/1994 Medications Albuterol (Eqv-ProAir HFA) 90 mcg/inh inhalation aerosol 2 inhalation = 180 mcg, Inhalation, Every 6 hours, PRN as needed for shortness of breath or wheezing, # 18 Gm, 0 Refills, Maintenance, 10/13/24 10:12:00 AM EST, Aerosol, [facility]/pharmacy #[id number], Partial fill upon patient request if the prescription is for a schedule II opioid drug., 2 inhalation Inhalation Every 6 hours,PRN:as needed for shortness of breath or wheezing, 157, cm, 10/13/24 9:45:00 EST, Height Start Date: 10/13/24 Status: Ordered Quantity: 18.0 Unit: g Repeat number: 1 Indication: Cough, unspecified Eliquis 5 mg oral tablet 1 tablet, By Mouth, 2 times a day, # 180 tablet, 3 Refills, Maintenance, 10/10/24 4:14:00 PM EST, [facility] [id number], 157, cm, 09/23/24 7:51:00 EST, Height Start Date: 10/10/24 Status: Ordered Quantity: 180.0 Unit: tablet Repeat number: 1 furosemide 20 mg oral tablet 20 mg, 1, tablet, By Mouth, 2 times a day, # 180 tablet, Refills 1, Tot. Refills 1, Maintenance, 09/23/24 8:21:00 AM EST, Route to Pharmacy Electronically, [facility]/pharmacy #[id number], Partial fill upon patient request if the prescription is for a schedule II opioid drug., 157, cm, 09/23/24 7:51:00 EST, Height Start Date: 09/23/24 Status: Ordered Quantity: 180.0 Unit: tablet Repeat number: 2 lactase 9000 u oral tablet 1 tablet = 9,000 units, By Mouth, Daily, PRN Other, use PRN before consuming dairy products, 0 Refills, Maintenance, 02/28/19 11:25:15 AM EDT Start Date: 02/28/19 Status: Ordered Repeat number: 1 rosuvastatin 10 mg oral tablet 1 tablet, By Mouth, Daily at bedtime, FOR CHOLESTEROL., # 90 tablet, 0 Refills, Maintenance, :29:00 PM EST, [facility]/pharmacy #[id number], 157, cm, 09/23/24 7:51:00 EST, Height Start Date: 10/10/24 Status: Ordered Quantity: 90.0 Unit: tablet Repeat number: 1 Problem List Condition Confirmation Course Effective Dates Status H ealth Status Informant A-fib- dx in ER 02/18/22. on elliquis, followed by cardiology Confirmed Active Bereavement Confirmed Active Cervical radiculopathy Confirmed Active Chronic left shoulder pain Confirmed Active Deficiency of vitamin B12 Confirmed Active Degenerative joint disease of shoulder region 1 Confirmed 05/20/15 Active Grade II diastolic dysfunction Confirmed Active Hearing aid worn- right ear Confirmed Active Esophageal reflux Confirmed Active Hernia, hiatal-small, noted on EGD 2016- Dr Carbajal Confirmed Active History of carpal tunnel release of both wrists- around 2007 , [facility] Confirmed Active S/P bilateral hip replacements Confirmed Active Hx of right inguinal hernia repair Confirmed Active History of COVID-19- rapid home test positive 04/29/22 did paxlovid and then had rebound covid 10 days later Confirmed Active Hypertension Confirmed Active Lactose intolerance Confirmed Active Mitral regurgitation Confirmed Active Parsonage-Echols syndrome- L arm / hand weakness Confirmed Active Osteoarthritis, knee, R<L, had had injections/ ortho Confirmed Active Otosclerosis- not sure which ear, had surgery in her 30's-- has hearing aid Confirmed Active Left wrist pain Confirmed Active Physical exam Confirmed Active Syncope 2 Confirmed Active Lee's cyst Confirmed Active 1Outside Source Comment: Overview: Degenerative joint disease of shoulder region 2neg ETT, Echo, HOlter 17 beat run SVT Results Radiology Reports * Exam Date Time Procedure Performing Provider Status 12/01/24 9:40 AM Chest 2 Views Frontal and Lat Glendy Mayers; Auth (Verified) Notes: (Chest 2 Views Frontal and Lat) Reason For Exam: cough x 5 day , course breath sounds, r/o pna;Cough RESULT: Chest 2 Views Frontal and Lat Chest 2 Views Frontal and Lat INDICATION/CLINICAL QUESTION: Reason: Cough; cough x 5 day , course breath sounds,. Concern of pneumonia. TECHNIQUE: Frontal and lateral views of the chest. COMPARISON: 10/13/2024. FINDINGS: LINES AND TUBES: None. LUNGS AND PLEURA: RIGHT CHEST: The right lung is clear and there is no right effusion. LEFT CHEST: The left lung is clear and there is no left effusion. HEART, MEDIASTINUM AND TREY: The heart is of normal size. The mediastinum and trey are normal. BONES AND SOFT TISSUES: No acute bony abnormality. IMPRESSION: 1. No active disease in chest. WSN: [id number] Ordering Physician: Tanna Solano Dictated By: Manuel Aden MD Dictated Date/Time: 12/01/24 9:46 am Reviewed By: Manuel Aden MD Signed By: Manuel Aden MD Signed Date/Time: 12/01/24 9:46 am Transcribed By: SASKIA Transcribed Date/Time: 12/01/24 9:45 am Social History Social History Type Response Smoking Status Former smoker; Other : quit 30 yrs ago; entered on: 02/23/15 Sex Sex Representation Female (finding) Patient Care team information Care Team Personnel Name: Suzanne Xiong MD Position: [facility] Physician - Primary Care Member Role: PCP Address: [address] [place] [address] Telecom: Care Team Related Persons Name: JOLANTA GORDON MD Name: ALINE GORDON Name: DES GORDON Name: MARY ALICE UNGER Insurance Providers Guarantor name: LESLIE BRADSHAW [facility] Information #: 1 Payer: [email or web address] CARE ELECT Member Number: [id number] Policy Number: NA Group Number: NA Health Plan Information #: 2 Payer: BLUE CARE ELECT Member Number: [id number] Policy Number: NA Group Number: NA
--- OUTSIDE RECORDS SUMMARY | 2024-12-20 10:20 | XMS_ITS | Encounter Summary ---
Author Organization [facility] Address [address] [place] [address] Care Team Providers Care Coding Support Specialist Name Role Phone Suzanne Xiong MD Primary Care Provider Reason for Visit * Reason Comments 30 day Looping monitor * Cardiac Stress Testing (Routine) - Closed Specialty Diagnoses / Procedures Referred By Ketty naqvi Referred To Contact Cardiology Diagnoses Atrial fibrillation, unspecified type (CMS/HCC) Procedures Cardiac event monitor OR EXTERNAL PATIENT ACTIVATED ECG DOWNLOAD W RESULTS & INTERP <= 30 DAYS OR EXTERNAL PAT AUTO ACTIVATED ECG INCLUDING TRANSMISSION UP TO 30 DAYS OR EXTERNAL MOBILE CV TELEMETRY W ECG RECORDING <=30D PHYSCIAN REV & INTERP OR EXTERNAL MOBILE CV TELEMETRY W ECG RECORDING TECH SUPPORT UP TO 30 DAYS OR ECG UP TO 30 DAYS RECORDING Rajendra Acharya MD [address] [place] [address] DRIVE [address] [place] [address] Phone: tel: fax: Referral ID Status Reason Start Date Expiration Date Visits Re quested Visits Authorized [id number] Closed 09/30/2024 12/29/2024 1 1 Encounter Details Date Type Department Care Team (Latest Contact Info) Description 11/28/2024 8:00 AM EST Ancillary Procedure [facility] [address] [place] [id number] Atrial fibrillation, unspecified type (CMS/HCC) Social History Tobacco Use Types Packs/Day Years [...] on file documented as of this encounter Plan of Treatment Upcoming Encounters Date Type Department Care Team (Late st Contact Info) Description 01/07/2025 2:40 PM EDT Office Visit [facility] [address] [place] [address] Zahira Elizabeth NP [address] [place] [address] [address] [place] [address] Pending Results Name Type Priority Associated Diagnoses Date /Time Cardiac event monitor Cardiac Services Routine Atrial fibrillation, unspecified type (CMS/HCC) 11/29/2024 7:14 AM EST documented as of this encounter Visit Diagnoses Diagnosis Atrial fibrillation, unspecified type (CMS/HCC) documented in this encounter Care Teams Coding Support Specialist Relationship Specialty Start Date End Date Suzanne Xiong MD [address] [address] PCP - General 06/06/23 documented as of this encounter
--- OUTSIDE RECORDS SUMMARY | 2024-12-20 10:20 | XMS_ITS | Continuity of Care Document ---
Author Organization [facility] Address [address] [place] [address]- Care Team Providers Care Sewage Disposal Worker Name Role Phone Inga ABEBE, Suzanne Melendez Primary Care Physician Encounter [facility] Date(s): 12/01/24 - 12/08/24 [facility] [address] [place], [place] [address] Encounter Diagnosis Fever(Discharge Diagnosis) - 12/01/24 Cough(Discharge Diagnosis) - 12/01/24 A-fib- dx in ER 02/18/22. on elliquis, followed by cardiology(Discharge Diagnosis) - 12/01/24 Attending Physician: Tanna Solano MD Referring Physician: Suzanne Xiong MD Encounter Type: Office Visit Allergies, Adverse Reactions, Alerts No Known Medication Allergies Substance Criticality Severity Reaction Reaction Severity Status Nickel 1 Unable to assess criticality Persistent Mild Unknown Active Other Environmental Allergy Active 1Outside Source Comment: Nickel allergy-no official records of allergy testing. Skin turns green. Immunizations Given and Recorded Vaccine Date Status Refusal Reason influenza virus vaccine, inactivated 07/01/23 Damion rded influenza virus vaccine, inactivated 06/22/20 [...] influenza virus vaccine, inactivated 07/09/09 Give n [id number] bivalent booster vax 07/25/22 Recorded SARS-CoV-2 (COVID-19) [...] 9 07/09/07 Given 1Result Comment: [08/13/2018] [facility]: [id number] 2Result Comment: [08/15/2017] 2016 2017 3Admin Note: VIM 05/03/11 4Admin Note: 05/18/10 VIM GIVEN TODAY fluzone 5Result Comment: [facility]# [id number] 6Result Comment: [09/11/2017] waiver signed 7Admin Note: [...] Refills, Maintenance, 10/13/24 10:12:00 AM EST, Aerosol, [facility]/pharmacy #[id number], Partial fill upon patient request if [...] 3 Refills, Maintenance, 10/10/24 4:14:00 PM EST, [id number], 157, cm, 09/23/24 7:51:00 EST, Height Start Date: 10/10/24 Status: Ordered Quantity: 180.0 Unit: tablet Repeat number: 1 furosemide 20 mg oral tablet 20 mg, 1, tablet, By Mouth, 2 times a day, # 180 tablet, Refills 1, Tot. Refills 1, Maintenance, 09/23/24 8:21:00 AM EST, Route to Pharmacy Electronically, [facility]/pharmacy #[id number], Partial fill upon patient request if [...] tablet, 0 Refills, Maintenance, :29:00 PM EST, [id number], 157, cm, 09/23/24 7:51:00 EST, Height Start Date: 10/10/24 Status: Ordered Quantity: 90.0 Unit: tablet Repeat number: 1 Problem List Condition Confirmation Course Effective Dates Status H ealth Status Informant A-fib- dx in ER 02/18/22. on [facility], followed by cardiology Confirmed Active Bereavement Confirmed Active Cervical radiculopathy Confirmed Active Chronic left shoulder pain Confirmed Active Deficiency of vitamin B12 Confirmed Active Degenerative joint disease of shoulder region 1 Confirmed 05/20/15 Active Grade II diastolic dysfunction Confirmed Active Hearing aid worn- right ear Confirmed Active Esophageal reflux Confirmed Active Hernia, hiatal-small, noted on EGD 2015- Dr Carbajal Confirmed Active History of carpal tunnel release of both wrists- around 2007 , [facility] Confirmed Active S/P bilateral hip replacements [...] ETT, Echo, HOlter 17 beat run SVT Diagnosis Diagnosis Type Effective Dates Health Status Clinical Service Informant Fever Discharge Diagnosis 12/01/24 Cough Discharge Diagnosis 12/01/24 A-fib- dx in ER 02/18/22. on [facility], followed by cardiology Discharge Diagnosis 12/01/24 Vital Signs Most recent to oldest [Reference Range]: 1 Height 157 cm (12/01/24 8:44 AM) Oxygen Saturation [94-100 %] 96 % (12/01/24 8:44 AM) Pulse Rate [55-90 bpm] 78 bpm (12/01/24 8:44 AM) Blood Pressure [90-138/55-84 mm Hg] 149/ 82mm Hg *H* (12/01/24 8:44 AM) Temperature [96.8-100.4 DegF] 98.9 DegF (12/01/24 8:44 AM) Mode of Delivery (Oxygen) Room air (12/01/24 8:44 AM) Blood pressure sites Arm, left (12/01/24 8:44 AM) Temperature Route Temporal (12/01/24 8:44 AM) Social History Social History Type Response Smoking Status Former smoker; Other : quit 30 yrs ago; entered on: 02/23/15 Sex Sex Representation Female (finding) Note * Eugene Rodriguez: PERFORM Event Display: Patient Education/Instruction Authored Date: [id number] Ambulatory Adult Visit Summary [facility] [address] [address] Name: LESLIE BRADSHAW : 1955?? Visit: 12/01/2024 08:28?? Ambulatory Visit Instructions ?? Your Care Team Primary Care Provider Inga ABEBE, Suzanne Melendez? This Visit Provider [facility] Your Diagnosis Fever Cough A-fib- dx in ER 02/18/22. on elliquis, followed by cardiology Vitals Signs Temperature: 98.9 DegF Height: 157 cm Pulse Rate: 78 bpm ?? Systolic Blood Pressure:??149 mm Hg??High ?? Diastolic Blood Pressure: 82 mm Hg ?? Oxygen Saturation: 96 % ?? What to do next Future Orders COVID-19, RSV, and Flu A/B, Rapid PCR - Routine, Nose, Patient is Symptomatic, Once, 12/01/24 9:26:00 EST, Order for Today, [facility], Nasal?? Medications The list below reflects the information in our records and provided by you today along with any changes made during this visit. Please continue your medications until treatment is completed or stopped by your provider. If this is different from the information you have or there are other questions,please contact the prescribing provider. What How Much When Why Instructions New Azithromycin (azithromycin 250 mg oral tablet) See instructions Fever 2 tablets (500 mg) on first day, then one tablet (250 mg) daily for 4 days. 5 days total. ?? Pickup at [facility]/pharmacy #[id number] Unchanged Albuterol (Albuterol (Eqv-ProAir HFA) 90 mcg/ inh inhalation aerosol) 2 inhalation Inhalation Every 6 hours as needed for as needed for shortness of breath or wheezing Cough Contact prescribing physician if questions or concerns ?? Unchanged apixaban (Eliquis 5 mg oral tablet) 1 tab(s) Oral Twice a day Contact prescribing physician if questions or concerns ?? Unchanged Furosemide (furosemide 20 mg oral tablet) 1 tab(s) Oral Twice a day Contact prescribing physician if questions or concerns ?? Unchanged Lactase (lactase 9000 u oral tablet) 1 tab(s) Oral Daily as needed for Other use PRN before consuming dairy products Contact prescribing physician if questions or concerns ?? Unchanged Rosuvastatin (rosuvastatin 10 mg oral tablet) 1 tab(s) Oral Daily at Bedtime FOR CHOLESTEROL. Contact prescribing physician if questions or concerns ?? Pharmacy Information [facility]/pharmacy #[id number]: [address], [place] [id number] [phone] Test Performed Below is a partial list of the tests performed during your Visit. You may have had other tests and procedures not included in this list. Please discuss all test results with your provider. COVID-19, RSV, and Flu A/B, Rapid PCR?-- Results Pending -- Lab Test Results Point of Care Results POC COVID-19 Antigen Results: Negative for COVID-19 Antigen (12/01/24) Medications and Immunizations Administered Medications Given During Visit No medications given during this visit.?? Allergies (NKA means No Known Allergies) Nickel??(Unknown) Other Environmental Allergy Common Emergency Awareness Tips IS IT A STROKE? Act FAST and Check for these signs: FACE Does the face look uneven? ARM Does one arm drift down? SPEECH Does their speech sound strange? TIME Call at any sign of stroke ?? Heart Attack Signs Chest discomfort: Most heart attacks involve discomfort in the center of the chest and lasts more than a few minutes, or goes away and comes back. It can feel like uncomfortable pressure, squeezing, fullness or pain. Discomfort in upper body: Symptoms can include pain or discomfort in one or both arms, back, neck, jaw or stomach. Shortness of breath: With or without discomfort. Other signs: Breaking out in a cold sweat, nausea, or lightheaded. Remember, MINUTES DO MATTER. If you experience any of these heart attack warning signs, call to get immediate medical attention! ?? Smoking can increase your chances of developing chronic health problems and can cause harmful effects to other family members in your house. If you smoke, you are strongly encouraged to quit. Please call [facility] [employer] Link at [phone] or 0-526-912-LiquidM ([phone]) or log in to [email or web address] for referrals to smoking cessation programs. ?? The National Suicide Prevention Hotline is available 01/05 if you or someone you know needs to find a reason to keep living. By calling 2-247-930-[employer] (7723) you'll be connected to a skilled, trained counselor at a crisis center in your area. [facility] [employer] Portal You can view and manage your care through the patient portal or by using a health care melissa of your choosing. [employer] is a website that allows you to securely view your medical information including your hospital discharge summary, office visit summaries, medications and follow-up visits. You can also request appointments, renew medications, and request access to your medical information using a health care melissa of your choosing, or just ask a question. You can enroll at [email or web address] or register during your next office visit. [facility], in keeping with [facility] guidance, no longer requires face masks for staff, patientsor visitors in most situations. Similiar to time spent indoors at other locations, there is the chance that you were exposed to repiratory viruses during your time with us (such as flu or COVID-19). If you develop symptoms concerning for a viral respiratory infection, please seek testing (and treatment if indicated) from your medical provider or home test kit. ?? Disclaimer: The information provided is of a general nature and is intended to be used in conjunction with the recommendations and advice of your health care practitioner. Every effort has been made to ensure that the information provided is accurate and complete at the time it is provided to you however, as your needs change, or, as new information becomes available, different or additional instructions may be required. ?? If you have questions, please consult with your primary care provider or pharmacist, as appropriate. This information is not intended to serve as substitution for assessment and evaluation by a qualified health care provider. If you do not have a primary care provider, you may find a [facility] provider by calling [facility] [employer] [facility] at [phone]. Patient Care team information Care Team Personnel Name: Suzanne Xiong MD Position: [facility] Physician - Primary Care Member Role: PCP Address: [address] [place] [address] Telecom: Care Team Related Persons Name: JOLANTA GORDON MD Name: ALINE GORDON Name: DES GORDON Name: MARY ALICE UNGER Insurance Providers Guarantor name: LESLIE [employer] Plan Information #: 2 Payer: MEDICARE PART B OUTPT Member Number: [id number] Policy Number: NA Group Number: NA Health Plan Information #: 1 Payer: BLUE CARE ELECT Member Number: [id number] Policy Number: NA Group Number: [id number]
[2025-02-06 09:00] VITALS: BMI 28.1
--- NOTE | 2025-02-06 10:38 | HO.ANESPROP2 ---
HPI - Anesthesia Eval Consult details Narrative: 69yo F for Right Cataract Extraction IOL Insertion Eliquis for afib No previous cataract on record PMFSH Past Medical History Medical History (Updated 02/06/25 @ 08:54 by Destini Lemon, REHAN) Environmental allergies Hx of syncope Weakness of left arm Parsonage-Echols syndrome Otosclerosis, unspecified Osteoarthritis Mitral valve regurgitation Bilateral cataracts Lactose intolerance HTN (hypertension) Personal history of COVID-19 Hiatal hernia Wears hearing aid in right ear Grade II diastolic dysfunction GERD (gastroesophageal reflux disease) DJD (degenerative joint disease) Left shoulder pain Cervical radiculopathy A-fib Surgical History Surgical History (Updated 02/06/25 @ 08:50 by Destini Lemon RN) History of revision of total replacement of right hip joint Hx of bilateral hip replacements Hx of right inguinal hernia repair History of bilateral carpal tunnel release History of esophagogastroduodenoscopy (EGD) Social History Social History (Updated 02/06/25 @ 09:05 by Destini Lemon RN) Household Members: None Housing: House Patient Tobacco Use Status: Former Tobacco user Tobacco use type: Cigarette Use of substances other than those prescribed or required for medical reasons: No Advance Directives: No Advance Directives Information Provided: Yes Advance Directives on File: No Healthcare Proxy: No Meds Allergies Allergy/AdvReac Type Severity Reaction Status Date / Time nickel Allergy Unknown Verified 02/06/25 08:54 Home Medications ?Medication ?Instructions ?Recorded ?Confirmed ?Last Taken ?Type albuterol sulfate 90 mcg/actuation 2 puff inhalation Q6H PRN wheezing 02/06/25 02/06/25 Unknown History aerosol inhaler apixaban 5 mg tablet (Eliquis) 5 mg PO BID 02/06/25 02/06/25 Unknown History furosemide 20 mg tablet 20 mg PO BID 02/06/25 02/06/25 Unknown History lactase 9,000 unit tablet 9,000 unit PO DAILY PRN Abdominal 02/06/25 02/06/25 Unknown History Discomfort rosuvastatin 10 mg tablet 10 mg PO BEDTIME 02/06/25 02/06/25 Unknown History Exam Height,Weight and Vital Signs: Height 5 ft 1.81 in Weight 69.3 kg Assessment and Plan Assessment Anesthesia Assessment: Chart Reviewed
[2025-02-10] MEDS: Tetracaine HCl/PF 0.5% Oph Sol 4 ML DROPS 1 DROP EYE-RIGHT (06:50)
[2025-02-10] MEDS: Cyclopentolate 1 % Ophth Sol 2 ML DRPBTL 1 DROP EYE-RIGHT ×3 (06:50→06:59)
[2025-02-10] MEDS: Ketorolac Tromethamine 0.5% Op 5 ML DROPS 1 DROP EYE-RIGHT ×3 (06:50→06:59)
[2025-02-10] MEDS: Phenylephrine HCL 2.5% Oph SoL 2 ML BOTTLE 1 DROP EYE-RIGHT ×3 (06:50→06:59)
[2025-02-10] MEDS: Tropicamide 1 % Ophth Sol 3 ML BTL 1 DROP EYE-RIGHT ×3 (06:50→06:59)
[2025-02-10] MEDS: Lactated Ringers 500 ML 50 ML IV (06:51)
[2025-02-10 07:00] VITALS: BP 156/91; PULSE 67; RESP 18; TEMP 36.7; O2SAT 96
--- NOTE | 2025-02-10 07:39 | P.CONAN_ITS ---
FORMERLY [facility], LATER [facility] Past Medical History Medical History Environmental allergies Hx of syncope Weakness of left arm Parsonage-Echols syndrome Otosclerosis, unspecified Osteoarthritis Mitral valve regurgitation Bilateral cataracts Lactose intolerance HTN (hypertension) Personal history of COVID-19 Hiatal hernia Wears hearing aid in right ear Grade II diastolic dysfunction GERD (gastroesophageal reflux disease) DJD (degenerative joint disease) Left shoulder pain Cervical radiculopathy A-fib Functional capacity: independent ambulation Patient : No Family History Family history of problems with anesthesia: No Surgical History Surgical History History of revision of total replacement of right hip joint Hx of bilateral hip replacements Hx of right inguinal hernia repair History of bilateral carpal tunnel release History of esophagogastroduodenoscopy (EGD) History of Problems with Anesthesia: No Social History Social History Household Members: None Housing: House Patient Tobacco Use Status: Former Tobacco user Tobacco use type: Cigarette Meds Allergies Allergy/AdvReac Type Severity Reaction Status Date / Time nickel Allergy Unknown Verified 02/10/25 07:01 Active Medications: Current Medications Lactated Ringer's (Lr) 500 mls @ 50 mls/hr IV .Q10H PAT Stop: 02/10/25 16:44 Last Admin: 02/10/25 06:51 Dose: 50 mls/hr Povidone Iodine (Povidone Iodine 5 % Ophth Soln 30 Ml Bottle) 1 appl EYE-RIGHT PREOP PRN PRN Reason: Pre-Op Surgical Implant Prophy Home Medications ?Medication ?Instructions ?Recorded ?Confirmed ?Last Taken ?Type albuterol sulfate 90 mcg/actuation 2 puff inhalation Q6H PRN wheezing 02/06/25 02/06/25 Unknown History aerosol inhaler apixaban 5 mg tablet (Eliquis) 5 mg PO BID 02/06/25 02/06/25 Unknown History furosemide 20 mg tablet 20 mg PO BID 02/06/25 02/06/25 01/20/25 History lactase 9,000 unit tablet 9,000 unit PO DAILY PRN Abdominal 02/06/25 02/06/25 Unknown History Discomfort rosuvastatin 10 mg tablet 10 mg PO BEDTIME 02/06/25 02/06/25 Unknown History Exam Height,Weight and Vital Signs: Height 5 ft 1.81 in Weight 69.3 kg Last Vital Signs Temp 98.0 F 02/10/25 07:00 Pulse 67 02/10/25 07:00 Resp 18 02/10/25 07:00 BP 156/91 H 02/10/25 07:00 Pulse Ox 96 02/10/25 07:00 O2 Del Method Room Air 02/10/25 07:00 Airway Mallampati Class: I TM Dist: >3cm Neck ROM: Full Heart: RRR Lungs: CTA Assessment and Plan Assessment Anesthesia Assessment: Anesthesia Plan Discussed and Chart Reviewed Final Anesthetic Review Family History of Problems with Anesthesia: No History of Problems with Anesthesia: No NPO: Yes ASA Class: II Final Preanesthetic Review: Meds/Allgs Chart Reviewed, Consent Obtained/Reviewed and Anes Risks/Benef Reviewed Anesthetic Plan Anesthetic Plan: MAC: Disposition: Standard PACU
--- NOTE | 2025-02-10 08:02 | MHC.SHP ---
Pre-Procedural Eval Section A - 24 Hr Update-Section A only Date of Service: 02/10/25 The patient is an INPATIENT: No Changes since office visit: No Cold of Flu in the past 2 weeks, No New Medical Problems, No Changes in Medication and No Patient answered all questions The patient has been examined within 24 hours of the surgical procedure. The History & Physical has been completed within 30 days and I have reviewed it.: Yes Section B - Complete if H&P > 30 days Chief Complaint: Age-related nuclear cataract, left eye Allergies: Allergies Allergy/AdvReac Type Severity Reaction Status Date / Time nickel Allergy Unknown Verified 02/10/25 07:01 Plan Diagnosis/Plan: Unchanged I have reviewed the history and physical and performed a pertinent physical examination on my patient. No changes have occurred unless specified. Time Spent With Patient Time: Total time managing care of this patient today ____ minutes.
--- NOTE | 2025-02-10 08:03 | P.PCNO_ITS ---
Ophthalmology Procedure Procedure Date of Service: 02/10/25 Ophthalmology Viscoelastic: Healon Duet Dual Pack Pro Ophthalmology Lenses: IOL Acrysof MP - MA60AC (20.5) Procedure Notes: PREOPERATIVE DIAGNOSIS: Decreased visual acuity right eye secondary to cataract POSTOPERATIVE DIAGNOSIS: Same PROCEDURE: Right cataract extraction with intraocular lens insertion SURGEON: Jaison Jc M.D. ANESTHESIA: Topical/MAC ESTIMATED BLOOD LOSS: None COMPLICATIONS: None After obtaining informed consent, the patient was brought to the operating room suite and placed in the supine position. After adequate sedation per anesthesia, topical drops of Tetracaine were given to the right eye. The eye was then prepped and draped in the usual sterile fashion. The operating room microscope was then positioned over the operative eye and a lid speculum placed. A paracentesis was created. Viscoelastic was then instilled into the anterior chamber. A three plane incision was then created temporally, utilizing a 2.85 mm keratome. Capsulotomy forceps were then utilized to create a circular tear capsulotomy. Hydrodissection and hydrodelineation were carried out until adequate mobilization of the nucleus occurred. Phacoemulsification was then utilized to remove the dense central nu cleus followed by removal of the cortical material utilizing the automated aspiration irrigation unit. Viscoelastic was instilled into the posterior capsular bag followed by placement of a posterior chamber intraocular lens without difficulty. The residual Viscoelastic was then removed utilizing the automated IA machine. The wound was checked and found to be watertight. The patient tolerated the procedure well and the lid speculum was removed. Intracameral injection of Vigamox 0.1 mL followed by a subtenon injection of Kenalog-40 0.2 mL were administered. The patient will be seen in the a.m.
--- NOTE | 2025-02-10 08:22 | HO.ANESPROP2 ---
[facility] Past Medical History Medical History Environmental allergies Hx of syncope Weakness of left arm Parsonage-Echols syndrome Otosclerosis, unspecified Osteoarthritis Mitral valve regurgitation Bilateral cataracts Lactose intolerance HTN (hypertension) Personal history of COVID-19 Hiatal hernia Wears hearing aid in right ear Grade II diastolic dysfunction GERD (gastroesophageal reflux disease) DJD (degenerative joint disease) Left shoulder pain Cervical radiculopathy A-fib Functional capacity: independent ambulation Family History Family history of problems with anesthesia: No Surgical History Surgical History History of revision of total replacement of right hip joint Hx of bilateral hip replacements Hx of right inguinal hernia repair History of bilateral carpal tunnel release History of esophagogastroduodenoscopy (EGD) History of Problems with Anesthesia: No Social History Social History Household Members: None Housing: House Patient Tobacco Use Status: Former Tobacco user Tobacco use type: Cigarette Use of substances other than those prescribed or required for medical reasons: No Are you DNR?: No Advance Directives: No Advance Directives Information Provided: Yes Advance Directives on File: No Patient : No Meds Allergies Allergy/AdvReac Type Severity Reaction Status Date / Time nickel Allergy Unknown Verified 02/10/25 07:01 Active Medications: Current Medications Lactated Ringer's (Lr) 500 mls @ 50 mls/hr IV .Q10H PAT Stop: 02/10/25 16:44 Last Admin: 02/10/25 06:51 Dose: 50 mls/hr Povidone Iodine (Povidone Iodine 5 % Ophth Soln 30 Ml Bottle) 1 appl EYE-RIGHT PREOP PRN PRN Reason: Pre-Op Surgical Implant Prophy Home Medications ?Medication ?Instructions ?Recorded ?Confirmed ?Last Taken ?Type albuterol sulfate 90 mcg/actuation 2 puff inhalation Q6H PRN wheezing 02/06/25 02/06/25 Unknown History aerosol inhaler apixaban 5 mg tablet (Eliquis) 5 mg PO BID 02/06/25 02/06/25 Unknown History furosemide 20 mg tablet 20 mg PO BID 02/06/25 02/06/25 01/20/25 History lactase 9,000 unit tablet 9,000 unit PO DAILY PRN Abdominal 02/06/25 02/06/25 Unknown History Discomfort rosuvastatin 10 mg tablet 10 mg PO BEDTIME 02/06/25 02/06/25 Unknown History Exam Height,Weight and Vital Signs: Height 5 ft 1.81 in Weight 69.3 kg Last Vital Signs Temp 98.0 F 02/10/25 07:00 Pulse 67 02/10/25 07:00 Resp 18 02/10/25 07:00 BP 156/91 H 02/10/25 07:00 Pulse Ox 96 02/10/25 07:00 O2 Del Method Room Air 02/10/25 07:00 Assessment and Plan Assessment Anesthesia Assessment: Anesthesia Plan Discussed Final Anesthetic Review Family History of Problems with Anesthesia: No History of Problems with Anesthesia: No ASA Class: II Final Preanesthetic Review: Meds/Allgs Chart Reviewed, Consent Obtained/Reviewed and Anes Risks/Benef Reviewed Patient Risk: Low Procedure Risk: Low Anesthetic Plan Anesthetic Plan: MAC: Disposition: Standard PACU
[2025-02-10 08:34] VITALS: BP 149/80; PULSE 62; RESP 18; TEMP 36.4; O2SAT 97
--- NOTE | 2025-02-10 08:47 | HO.POSTANES ---
Post Anesthesia Evaluation Post Anesthesia Evaluation Date of Service: 02/10/25 Vital Signs: Vital Signs Temp Pulse Resp BP Pulse Ox O2 Del Method 02/10/25 08:34 97.6 F 62 18 149/80 H 97 Room Air 02/10/25 07:00 98.0 F 67 18 156/91 H 96 Room Air Anesthesia: Monitored Mental Status: Awake Pain Control: Satisfactory Nausea/Vomiting: None Hydration: Adequate Anesthesia-Related Issues: No Anes. Related Issues
== END 2025-02-10 08:36 | disposition home or self-care (01) ==
PROVIDERS: PCP Pediatrics; Visit Provider Ophthalmology
PROC: (CPT 66985; principal; 2025-02-10 08:00)
DX: H25.12 Age-related nuclear cataract, left eye (principal); H52.4 Presbyopia; H35.033 Hypertensive retinopathy, bilateral; H43.393 Other vitreous opacities, bilateral; H18.413 Arcus senilis, bilateral; H35.09 Other intraretinal microvascular abnormalities; I10 Essential (primary) hypertension; I48.91 Unspecified atrial fibrillation; E78.00 Pure hypercholesterolemia, unspecified; J45.909 Unspecified asthma, uncomplicated; Z79.01 Long term (current) use of anticoagulants; Z79.899 Other long term (current) drug therapy; Z98.890 Other specified postprocedural states; Z87.891 Personal history of nicotine dependence
CPT/HCPCS: 66984; J2250; J3010; J3301; V2630

== ENCOUNTER 2025-02-24 06:31 | Day surgery (SDC) | payer BC, SELFPAY ==
[2025-02-06 09:09] VITALS: BMI 28.1
--- NOTE | 2025-02-20 14:59 | HO.ANESPROP2 ---
Documented by User: Marcella Beth NP 02/20/25 15:00 HPI - Anesthesia Eval Consult details Narrative: 69yo F for Left Cataract Extraction IOL Insertion Right eye 02/10/25: Fent 50, Midaz 2 Eliquis for afib PMFSH Past Medical History Medical History Environmental allergies Hx of syncope Weakness of left arm Parsonage-Echols syndrome Otosclerosis, unspecified Osteoarthritis Mitral valve regurgitation Bilateral cataracts Lactose intolerance HTN (hypertension) Personal history of COVID-19 Hiatal hernia Wears hearing aid in right ear Grade II diastolic dysfunction GERD (gastroesophageal reflux disease) DJD (degenerative joint disease) Left shoulder pain Cervical radiculopathy A-fib Family History Family history of problems with anesthesia: No Surgical History Surgical History Hx of right cataract extraction (02/10/25) History of revision of total replacement of right hip joint Hx of bilateral hip replacements Hx of right inguinal hernia repair History of bilateral carpal tunnel release History of esophagogastroduodenoscopy (EGD) History of Problems with Anesthesia: No Social History Social History Household Members: None Housing: House Patient Tobacco Use Status: Former Tobacco user Tobacco use type: Cigarette Use of substances other than those prescribed or required for medical reasons: No Advance Directives: No Advance Directives Information Provided: Yes Advance Directives on File: No Healthcare Proxy: No Meds Allergies Allergy/AdvReac Type Severity Reaction Status Date / Time nickel Allergy Unknown Verified 02/10/25 07:01 Home Medications ?Medication ?Instructions ?Recorded ?Confirmed ?Last Taken ?Type albuterol sulfate 90 mcg/actuation 2 puff inhalation Q6H PRN wheezing 02/06/25 02/19/25 Unknown History aerosol inhaler apixaban 5 mg tablet (Eliquis) 5 mg PO BID 02/06/25 02/19/25 02/03/25 History furosemide 20 mg tablet 20 mg PO BID 02/06/25 02/19/25 01/20/25 History lactase 9,000 unit tablet 9,000 unit PO DAILY PRN Abdominal 02/06/25 02/19/25 Unknown History Discomfort rosuvastatin 10 mg tablet 10 mg PO BEDTIME 02/06/25 02/19/25 Unknown History Exam Height,Weight and Vital Signs: Height 5 ft 1.81 in Weight 69.3 kg Assessment and Plan Assessment Anesthesia Assessment: Chart Reviewed Final Anesthetic Review Family History of Problems with Anesthesia: No History of Problems with Anesthesia: No Documented by User: Angelita Macdonald MD 02/24/25 07:39 PMFSH Past Medical History Medical History Environmental allergies Hx of syncope Weakness of left arm Parsonage-Echols syndrome Otosclerosis, unspecified Osteoarthritis Mitral valve regurgitation Bilateral cataracts Lactose intolerance HTN (hypertension) Personal history of COVID-19 Hiatal hernia Wears hearing aid in right ear Grade II diastolic dysfunction GERD (gastroesophageal reflux disease) DJD (degenerative joint disease) Left shoulder pain Cervical radiculopathy A-fib Surgical History Surgical History Hx of right cataract extraction (02/10/25) History of revision of total replacement of right hip joint Hx of bilateral hip replacements Hx of right inguinal hernia repair History of bilateral carpal tunnel release History of esophagogastroduodenoscopy (EGD) Social History Social History Household Members: None Housing: House Patient Tobacco Use Status: Former Tobacco user Tobacco use type: Cigarette Use of substances other than those prescribed or required for medical reasons: No Advance Directives: No Advance Directives Information Provided: Yes Advance Directives on File: No Healthcare Proxy: No Meds Allergies Allergy/AdvReac Type Severity Reaction Status Date / Time nickel Allergy Unknown Verified 02/10/25 07:01 Home Medications ?Medication ?Instructions ?Recorded ?Confirmed ?Last Taken ?Type albuterol sulfate 90 mcg/actuation 2 puff inhalation Q6H PRN wheezing 02/06/25 02/19/25 Unknown History aerosol inhaler apixaban 5 mg tablet (Eliquis) 5 mg PO BID 02/06/25 02/19/25 02/03/25 History furosemide 20 mg tablet 20 mg PO BID 02/06/25 02/19/25 01/20/25 History lactase 9,000 unit tablet 9,000 unit PO DAILY PRN Abdominal 02/06/25 02/19/25 Unknown History Discomfort rosuvastatin 10 mg tablet 10 mg PO BEDTIME 02/06/25 02/19/25 Unknown History Exam Airway Mallampati Class: II TM Dist: >3cm Neck ROM: Full Heart: rrrcta Assessment and Plan Final Anesthetic Review NPO: Yes ASA Class: III Final Preanesthetic Review: No Changes in Pt Med Stat, Meds/Allgs Chart Reviewed, Consent Obtained/Reviewed and Anes Risks/Benef Reviewed Patient Risk: Intermediate Procedure Risk: Low Anesthetic Plan Anesthetic Plan: MAC: Disposition: Standard PACU
[2025-02-24 06:43] VITALS: BP 162/94; PULSE 67; RESP 16; TEMP 36.1; O2SAT 97
[2025-02-24] MEDS: Tetracaine HCl/PF 0.5% Oph Sol 4 ML DROPS 1 DROP EYE-LEFT (06:44)
[2025-02-24] MEDS: Cyclopentolate 1 % Ophth Sol 2 ML DRPBTL 1 DROP EYE-LEFT ×3 (06:46→06:55)
[2025-02-24] MEDS: Ketorolac Tromethamine 0.5% Op 5 ML DROPS 1 DROP EYE-LEFT ×3 (06:48→06:58)
[2025-02-24] MEDS: Tropicamide 1 % Ophth Sol 3 ML BTL 1 DROP EYE-LEFT ×3 (06:48→06:57)
[2025-02-24] MEDS: Phenylephrine HCL 2.5% Oph SoL 2 ML BOTTLE 1 DROP EYE-LEFT ×3 (06:49→06:58)
[2025-02-24] MEDS: Lactated Ringers 500 ML 50 ML IV (06:54)
--- NOTE | 2025-02-24 08:01 | MHC.SHP ---
Pre-Procedural Eval Section A - 24 Hr Update-Section A only Date of Service: 02/24/25 The patient is an INPATIENT: No Changes since office visit: No Cold of Flu in the past 2 weeks, No New Medical Problems, No Changes in Medication and No Patient answered all questions The patient has been examined within 24 hours of the surgical procedure. The History & Physical has been completed within 30 days and I have reviewed it.: Yes Section B - Complete if H&P > 30 days Chief Complaint: Age-related nuclear cataract, left eye Allergies: Allergies Allergy/AdvReac Type Severity Reaction Status Date / Time nickel Allergy Unknown Verified 02/10/25 07:01 Plan Diagnosis/Plan: Unchanged I have reviewed the history and physical and performed a pertinent physical examination on my patient. No changes have occurred unless specified. Time Spent With Patient Time: Total time managing care of this patient today ____ minutes.
--- NOTE | 2025-02-24 08:01 | HO.PNOPHT ---
Ophthalmology Procedure Procedure Date of Service: 02/24/25 Ophthalmology Viscoelastic: Healon Duet Dual Pack Pro Ophthalmology Lenses: IOL Acrysof MP - MA60AC (20) Procedure Notes: PREOPERATIVE DIAGNOSIS: Decreased visual acuity left eye secondary to cataract POSTOPERATIVE DIAGNOSIS: Same PROCEDURE: Left cataract extraction with intraocular lens insertion SURGEON: Jaison Jc M.D. ANESTHESIA: Topical/MAC ESTIMATED BLOOD LOSS: None COMPLICATIONS: None After obtaining informed consent, the patient was brought to the operation room suite and placed in the supine position. After adequate sedation per anesthesia, topical drops of Tetracaine were given to the left eye. The eye was then prepped and draped in the usual sterile fashion. The operating room microscope was then positioned over the operative eye and a lid speculum placed. A paracentesis was created. Viscoelastic was then instilled into the anterior chamber. A three plane incision was then created temporally, utilizing a 2.85 mm keratome. Capsulotomy forceps were then utilized to create a circular tear capsulotomy. Hydrodissection and hydrodelineation were carried out until adequate mobilization of the nucleus occurred. Phacoemulsification was then utilized to remove the dense central nucleus followed by removal of the cortical material utilizing the automated aspiration irrigation unit. Viscoat elastic was instilled into the posterior capsular bag followed by placement of a posterior chamber intraocular lens without difficulty. The residual Viscoat elastic was then removed utilizing the automated IA machine. The wound was check and found to be watertight. The patient tolerated the procedure well and the lid speculum was removed. Intracameral injection of Vigamox 0.1 mL followed by a subtenon injection of Kenalog-40 0.2 mL were administered. The patient will be seen in the a.m.
[2025-02-24 08:26] VITALS: BP 159/90; PULSE 61; RESP 16; TEMP 36.1; O2SAT 99
== END 2025-02-24 08:41 | disposition home or self-care (01) ==
PROVIDERS: PCP Pediatrics; Visit Provider Ophthalmology
PROC: (CPT 66985; principal; 2025-02-24 08:00)
DX: H25.12 Age-related nuclear cataract, left eye (principal); H52.4 Presbyopia; H35.033 Hypertensive retinopathy, bilateral; H43.393 Other vitreous opacities, bilateral; H18.413 Arcus senilis, bilateral; H35.09 Other intraretinal microvascular abnormalities; I10 Essential (primary) hypertension; I48.91 Unspecified atrial fibrillation; E78.00 Pure hypercholesterolemia, unspecified; J45.909 Unspecified asthma, uncomplicated; Z87.891 Personal history of nicotine dependence; Z79.01 Long term (current) use of anticoagulants; Z79.899 Other long term (current) drug therapy; Z98.890 Other specified postprocedural states
CPT/HCPCS: 66984; J2003; J2704; J3301; V2630